=== PATIENT | female | born 1960 | race Caucasian/White ===

== ENCOUNTER → 2024-06-04 17:09 | Outpatient (REF) | payer BC, SELFPAY | LOC: CLAB 17:09 | PROVIDERS: ATTENDING PHYSICIAN Surgery | DX: C50.412 Malignant neoplasm of upper-outer quadrant of left female breast (principal) | CPT/HCPCS: 88307 ==

== ENCOUNTER → 2024-07-07 16:18 | Outpatient (REF) | payer MEDICARE, SELFPAY | LOC: CLAB 16:18 | PROVIDERS: ATTENDING PHYSICIAN Surgery | DX: D05.12 Intraductal carcinoma in situ of left breast (principal) | CPT/HCPCS: 88307; 88333; 88341; 88342 ==

== ENCOUNTER → 2024-08-20 08:10 | Outpatient (REF) | payer MEDICARE, SELFPAY | LOC: MRI 3T 08:10 | PROVIDERS: ATTENDING PHYSICIAN Surgery; FAMILY PHYSICIAN Internal Medicine | DX: C50.412 Malignant neoplasm of upper-outer quadrant of left female breast (principal) | CPT/HCPCS: 77049; A9585 ==

== ENCOUNTER 2024-08-25 06:07 | Day surgery (SDC) | payer MEDICARE, SELFPAY ==
[2024-08-24 14:13] VITALS: BMI 36.1
[2024-08-24 15:19] LABS: ALT (SGPT) 33 U/L (0-35); AST (SGOT) 36 U/L (14-36); Albumin 4.7 g/dl (3.5-5.0); Alkaline Phosphatase 99 U/L (38-126); Blood Urea Nitrogen 13 mg/dl (7-17); Calcium 10.4 mg/dl (8.4-10.2); Carbon Dioxide 27 mmol/L (22-30); Chloride 102 mmol/L (98-107); Estimated Creatinine Clearance 73 ml/min; Glucose 86 mg/dl (70-99); Potassium 4.3 mmol/L (3.5-5.1); Sodium 141 mmol/L (135-145); Total Bilirubin 0.3 mg/dl (0.2-1.3); Total Protein 7.4 g/dl (6.3-8.2); eGFR > 60.00
[2024-08-24 15:34] LABS: % Immature Granulocytes 0.3 % (0-0.5); % Lymphocytes 54.1 % (20.5-51.1); % Monocytes 8.4 % (1.7-9.3); % Neutrophils 35.2 % (42.2-75.2); Absolute Basophils 0.1 10^3/uL (0-0.2); Absolute Eosinophils 0.1 10^3/uL (0-0.7); Absolute Lymphocytes 4.2 10^3/uL (1.2-3.4); Absolute Monocytes 0.7 10^3/uL (0.1-0.6); Absolute Neutrophils 2.7 10^3/uL (1.4-6.5); Mean Corp Hgb Conc. 33.3 g/dL (33.0-37.0); Mean Corpuscular Hgb 28.8 pg (27.0-31.0); Mean Corpuscular Volume 86.3 fL (81.0-99.0); Mean Platelet Volume 9.5 fL (7.4-10.4); Nucleated Red Blood Cells % 0 %; Platelet Count 331 10^3/uL (130-400); Red Blood Cell Count 4.52 10^6/uL (4.20-5.40); Red Cell Dist. Width 13.9 % (11.5-14.5); White Blood Cell Count 7.8 10^3/uL (4.8-10.8)
[2024-08-24 15:50] LABS: TSH Reflex To Free T4 2.01 uIU/ml (0.47-4.68)
[2024-08-25] VITALS (8 sets, daily range): BP systolic 116–129; BP diastolic 62–84; BMI 35.6
[2024-08-25] MEDS: TYLENOL 1000 MG PO (06:44)
[2024-08-25] MEDS: LOVENOX 40 MG SC (06:44)
[2024-08-25] MEDS: NORMOSOL-R/PLASMALYTE-A 1000 IV (07:14)
[2024-08-25] MEDS: EMEND 40 MG PO (07:18)
--- NOTE | 2024-08-25 07:30 | W.SUR.PREOP ---
Pre-Operative Surgical Note
-
I have examined this patient prior to the performance of the scheduled procedure.
The patient's condition is unchanged from the time of the current History and
Physical and the patient is able to undergo the scheduled procedure.
--- NOTE | 2024-08-25 10:50 | W.IMMPOSTOP ---
Surgical Immed Post Op Note
-
Primary Surgeon: GALA Apodaca MD
Assisting Surgeon:
Pre-op Diagnosis: Recurrent left breast cancer, s/p mastectomy with TRAM flap and radiation
Post-op Diagnosis: Same
Procedure Performed: Bilateral revisions to reconstructed breasts, adjacent tissue transfer
Anesthesia Type: General
Specimen / Cultures: Right and left reconstructed breast tissue
Estimated Blood Loss: 30 cc
Complications: None
Operative Findings: As expected
--- NOTE | 2024-08-25 10:51 | OR.RPT ---
Operative Report
Operative Report
Date of surgery: 08/25/2024
Surgeon: GALA Apodaca MD
Preoperative diagnosis:
1. Recurrent left breast cancer
2. 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
3. Status post radiation
4. Status post bilateral TRAM flap breast reconstruction
Postoperative diagnosis: Same
Procedure:
1. Bilateral revisions to reconstructed breasts
2. Adjacent tissue transfer, trunk, 4.5 x 4.5 cm x 2, total 40.5 cm�
3. Spy angiography for evaluation of flap perfusion
Anesthesia: General
Specimens: Right and left reconstructed breast tissue
Complications: None
EBL: 30 cc
Indications for procedure: Patient is a 63-year-old female with a history of left-sided breast cancer. She was diagnosed with a recurrence with positive margins after lumpectomy. She has a history of bilateral mastectomy with TRAM flap
reconstruction. She had prior left breast radiation therapy. On consultation, she has a nonhealing wound of the left breast superior to the reconstructed nipple. An MRI confirmed the tissue required for resection was just under the site. She had a
large, oversized breast reconstruction via flaps that were pendulous and heavy. We discussed her options at length including revising the bilateral reconstructed breasts with removal of excess mastectomy skin and underlying flap tissue. This would
be done in a Ann pattern and performed Similarly to a breast reduction. Additional reconstruction may be necessary following additional radiation therapy. New areola complexes could be performed with prior abdominal skin islands via adjacent
tissue transfer. Risks include fat necrosis, surgical wound dehiscence, infection, hematoma, seroma. She understood these risk desire to proceed
Procedure in detail: Patient was identified preoperatively and the surgical sites were confirmed to be the bilateral breast. Bilateral Ann patterns were marked out along the reconstructed breasts. The bilateral reconstructed nipple areolar
complexes were also marked out. All questions were answered and consents were confirmed. Patient was taken back to the operating placed upon the table. Anesthesia was induced and the patient was prepped and draped in the usual sterile fashion
using ChloraPrep solution. Timeout for patient safety was performed was confirmed that bilateral SCDs were in place, preoperative Lovenox have been administered, and preoperative antibiotics have been given. Procedure began with on the right
breast and Dr. Regan on the left breast to perform the lumpectomy. Her operative report will be dictated separately.
On the right breast the Ann pattern markings were incised with a 10 blade and dissection continued down with Bovie electrocautery creating healthy skin flaps. The areola was incised and the remaining flap skin was excised full-thickness. The flap
was then contoured removing the lateral aspect to provide the reduction. The wound was tentatively closed on the side and adequate flap perfusion was confirmed as the Mode areola had punctate bleeding without evidence of congestion. When "Pacheco"Jass completed the lumpectomy the left side, the wound was inspected and it was found that a 4.5 x 4.5 cm area of skin has been resected in the site of prior lumpectomy. The underlying tissue had been partially resected as well a plan was made
to utilize the Ann pattern and rearranged tissue and debulked to match the right reconstructed breast. As such the Ann pattern markings were incised and Bovie electrocautery was used to incise down and create healthy skin flaps easily and
laterally. The remainder of the breast skin was removed to save for a 4.5 x 4.5 area that would be used to reconstruct the areola via adjacent tissue transfer. The remainder of the skin was excised full-thickness and then the flap was contoured to
create an appropriate breast mound. Meticulous hemostasis was ensured and the wound was tentatively closed after closure of the wide pulse pattern, the neoareola was transposed into the superior skin defect. A series of 2-0 Vicryl's followed by
3-0 and 4-0 Monocryl as well as the INSORB stapler were used to close the wounds. After percent Marcaine diluted with normal saline was used for pec and intercostal blocks. Attention was then drawn back to the right side where additional debulking
was performed to ensure symmetry. A 4.5 x 4.5 cm area of skin would be used for recreation of the areola via adjacent tissue transfer. A [employer] cutter was used to esme the skin at the area of the new areola by measuring the nipple to fold lengths
on the left. This was then incised with a 15 blade and excised full-thickness. The areola was then transposed and inset. The wounds were closed with 3-0 and 4-0 Monocryl in the INSORB stapler and as well as 2-0 Vicryl. Patient tolerated
procedure well, all counts were correct. At the conclusion and inset spy angiography was performed to confirm the viability of the bilateral mastectomy skin flaps as well as the underlying flap that had been developed. All showed adequate
perfusion.
Patient was extubated taken the PACU for further care. Wounds were dressed with ointment, dry gauze, and tegaderm.
[2024-08-25] MEDS: MORPHINE SULFATE 4 MG IV (11:11)
== END 2024-08-25 12:39 | disposition home or self-care (01) ==
LOC: SDS 06:07
PROVIDERS: ATTENDING PHYSICIAN Surgery; FAMILY PHYSICIAN Nurse Practitioner Family; OTHER PHYSICIAN Family Medicine; REFERRING PHYSICIAN Surgery Plastic and Reconstructive Surgery
DX: T81.89XA Other complications of procedures, not elsewhere classified, initial encounter (principal); Y93.89 Activity, other specified; Z85.3 Personal history of malignant neoplasm of breast; Z90.13 Acquired absence of bilateral breasts and nipples; Z15.09 Genetic susceptibility to other malignant neoplasm; Z92.3 Personal history of irradiation
CPT/HCPCS: 19380; 19301; 14001; 88305; 88307; 88332; 36415; 80053; 84443; 85025; 88331; 88341; 88342; 93005; A4648; C1894

== ENCOUNTER → 2025-01-11 09:03 | Outpatient (REF) | payer MEDICARE, SELFPAY | LOC: RCS 09:03 | PROVIDERS: ATTENDING PHYSICIAN Internal Medicine; FAMILY PHYSICIAN Nurse Practitioner Family | DX: I45.2 Bifascicular block (principal); R06.09 Other forms of dyspnea; T45.1X5A Adverse effect of antineoplastic and immunosuppressive drugs, initial encounter; Z17.0 Estrogen receptor positive status [ER+]; C50.912 Malignant neoplasm of unspecified site of left female breast | CPT/HCPCS: 93306; 93356 ==

== ENCOUNTER 2025-02-07 19:42 | Emergency (ER) | payer MEDICARE, SELFPAY ==
[2025-02-07 19:48] VITALS: BP 145/74
--- NOTE | 2025-02-07 22:14 | ED.GENMED ---
History of Present Illness
General
Chief Complaint: Musculo-Skeletal Complaint
Source: patient
Exam Limitations: none
Time Seen by Provider: 02/07/25 20:51
Nursing documentation reviewed up to this point in time: agreed with
History of Present Illness
History of Present Illness:
64 yr old female presents to the ER with after fall. Patient reports around 6:30 PM tonight she tripped outside and fell she braced her fall with her left arm outstretched and hit her face/nose. She denies any actual head. no loss of
consciousness.
she reports her arm took the brunt of the fall and she complains of pain to the right elbow proximal forearm region. She is not on blood thinners denies any headache denies any nausea vomiting dizziness.
Her only complaint presently is left arm pain.
Past History
Past History
ED Past Medical History: Cancer
ED Past Surgical History: Other
Social History
Tobacco: Non-smoker
Living: with family
Employment: Employed
Review of Systems
Review of Systems
Allergies reviewed?: Yes
All Other Systems: ROS reviewed and negative except as documented in HPI and ROS
Constitutional: Reports no symptoms
EENT: Reports other (abrasion to nose )
Respiratory: Reports no symptoms
Cardiac: Reports no symptoms
ABD/GI: Reports no symptoms; Denies nausea or vomiting
Musculoskeletal: Reports other (left arm pain ); Denies neck pain
Skin: Reports no symptoms
Neurological: Denies headache ( no LOC )
Psychiatric: Reports no symptoms
Phy Exam
General Physical Exam
General Presentation: no apparent distress
General age: appears stated age
General Skin: warm and dry
General Habitus: normal
General Mental: alert
General Hydration: appears well hydrated
ENT Exam
ENT Exam: EOMI, neck supple and other (+ abrasion to nose )
Eye Exam
Eye Exam: PERRL and EOMI
Eye Exam General: PERRL: bilateral and EOM intact: bilateral
Pupil Exam: Bilateral: round and reactive
Neurological Exam
Neurological Exam: alert, oriented x3, no motor deficits and no sensory deficits
Omi Coma Scale
Eye Opening: Spontaneous
Verbal Response: Oriented
Motor Response: Obeys Commands
GCS Total Score: 15
Musculoskeletal Exam
Musculoskeletal Exam: other (Left upper extremity strong pulses;+ tenderness to left proximal forearm minimal swelling normal distal sensation no abrasions or lacerations; no obvious head injury no bony cervical spine tenderness)
Skin Exam
Skin Exam: normal color and warm/dry
Psychiatric Exam
Psychiatric Exam: normal mood/affect
Course
Orders/Labs/Results
Orders:
Orders
02/07/25 19:45
CR Forearm - Left 2 View Urgent
Comment:
Reason For Exam: FALL
Nasal Bones, complete 3 Views [CR Nasal Bones Comp Min 3 View] Urgent
Comment:
Reason For Exam: FALL
02/07/25 22:17
Splints/Slings/Crut- Treatment ONCE
Location: Left
Type of Splint: Long Arm
Comment: posterior long arm
02/07/25 22:29
Sling Left-Treatment ONCE
Tetanus/Diphth/Acelpertussis [Adacel] 0.5 ml IM .ONCE ONE
Vital Signs
Initial and Last Documented VS:
Initial Vital Signs
Temp Pulse Resp BP Pulse Ox
98.1 F 80 20 145/74 100
02/07/25 19:48 02/07/25 19:48 02/07/25 19:48 02/07/25 19:48 02/07/25 19:48
Last Documented Vital Signs
Temp Pulse Resp BP Pulse Ox
98.1 F 80 20 145/74 100
02/07/25 19:48 02/07/25 19:48 02/07/25 20:00 02/07/25 19:48 02/07/25 19:48
MDM/Problems Addressed
Differential Diagnosis Includes:
Not limited to nasal contusion abrasion, fracture, elbow fracture versus contusion head injury
MDM/Problems Addressed:
As documented patient is a 64-year-old female not on blood thinners presented after fall. Fall occurred approximately 4 hours ago. She tripped and landed on an outstretched left arm and hit her nose. She denies hitting her actual head she denies
loss of consciousness she denies any headache nausea vomiting. No head injury complaints at this time. She primarily complains of left forearm pain and has a fracture to the left radial neck normal neurovascular exam no abrasions or lacerations.
Nasal bones are negative.
Will splint in a posterior long-arm and DC with Ortho follow-up.
Shared medical decision making patient denies hitting head and has no complaints of headache at this time she has a normal neurologic exam is not on thinners we will hold off on CAT scan. Patient unsure of her last tetanus
She is instructed to return if any worsening of symptoms no bony cervical spine tenderness.
Chronic conditions affecting care:
Currently being treated for breast cancer
*Radiology
Radiology exam reviewed: radiology read reviewed
*Critical Care Note
Total Time (30-74mins, 75-104mins- exclusive of procedures): Not Applicable
ED Attending Note
-
Portions of this chart may have been created with voice recognition software.� Occasional wrong word or��sound alike� substitutions may have occurred due to the inherent limitations of voice recognition software.
Discharge Plan
Departure
Patient Disposition: Home (Routine Discharge)
Date of Disposition: 02/07/25
Time of Disposition: 22:29
Patient with high blood pressure during this ER visit?: Yes
Covid-19: Not Applicable
Discharge Problem:
Forearm fracture, Contusion of nose, Abrasion
Instructions: Contusion (DC), Splint Care, Forearm fracture, Abrasions - ED discharge instructions
Prescriptions:
No Action
No Current Medications
0
Referrals:
Alyssia Shearer CRNP [Family Provider] -
Brijesh Israel MD [Active] -
Activity Restrictions/Additional Instructions:
As discussed wear splint for support until seen and evaluated by orthopedics. Please call orthopedics tomorrow. Do not wet splint. You may ice over the affected area and take Tylenol or ibuprofen as needed. Wear sling for support during the day
remove at night while sleeping. Return if any worsening of symptoms of increased pain cold numb or blue fingers. Return if any headaches nausea vomiting difficulty walking dizziness balance issues or any further concerns.
Interventions
Interventions:
*Risk Screen - Suicide Last Done: 02/07/25 22:11
*General Assessment Last Done: 02/07/25 22:11
*Neglect/Abuse Screening Last Done: 02/07/25 22:11
*ED- Fall Risk Assessment Last Done: 02/07/25 22:11
*ED COVID-19 Vaccine History Last Done: 02/07/25 22:11
*Nursing Disposition Last Done: 02/07/25 22:47
ED-Musculoskeletal Assessment Last Done: 02/07/25 21:45
Discharge Date and Time
Discharge Date/Time: 02/07/25 22:48
Print Language: MAORI
[2025-02-07] MEDS: ADACEL 0.5 ML IM (22:37)
== END 2025-02-07 22:48 | disposition home or self-care (01) ==
LOC: EMR 19:42
PROVIDERS: EMERGENCY PHYSICIAN Emergency Medicine; FAMILY PHYSICIAN Nurse Practitioner Family
DX: S52.132A Displaced fracture of neck of left radius, initial encounter for closed fracture (principal); S00.33XA Contusion of nose, initial encounter; S00.31XA Abrasion of nose, initial encounter; W01.0XXA Fall on same level from slipping, tripping and stumbling without subsequent striking against object, initial encounter; C50.919 Malignant neoplasm of unspecified site of unspecified female breast; Z23 Encounter for immunization
CPT/HCPCS: 29105; 99283; 90471; 70160; 73090; 90715

== ENCOUNTER → 2025-04-15 14:07 | Outpatient (REF) | payer MEDICARE, SELFPAY | LOC: RCS 14:07 | PROVIDERS: ATTENDING PHYSICIAN Internal Medicine; FAMILY PHYSICIAN Nurse Practitioner Family; OTHER PHYSICIAN Internal Medicine Hematology & Oncology | DX: I45.2 Bifascicular block (principal); R06.09 Other forms of dyspnea; T45.1X5A Adverse effect of antineoplastic and immunosuppressive drugs, initial encounter; Z17.0 Estrogen receptor positive status [ER+]; C50.912 Malignant neoplasm of unspecified site of left female breast | CPT/HCPCS: 93306; 93356 ==

== ENCOUNTER → 2025-05-06 16:37 | Outpatient (REF) | payer MEDICARE, SELFPAY | LOC: MRI 3T 16:37 | PROVIDERS: ATTENDING PHYSICIAN Internal Medicine Hematology & Oncology; FAMILY PHYSICIAN Nurse Practitioner Family | DX: C50.112 Malignant neoplasm of central portion of left female breast (principal) | CPT/HCPCS: 77049; A9585 ==

== ENCOUNTER → 2025-08-12 09:52 | Outpatient (REF) | payer MEDICARE, SELFPAY ==
--- NOTE | 2025-08-12 11:32 | CARDSERVDEF ---
Echocardiogram with Definity completed after protocol screening completed. Allergies verified.
Patent IV site: __R hand___
IV site flushed with 0.9% NaCl pre and post administration.
Diluted bolus method utilized to enhance visualization of ventricular acuña.
Total volume given: _6___ mL
Patient tolerated all procedures well without complications.
--- NOTE | 2025-08-12 11:32 | CARDSERVDEF ---
Echocardiogram with Definity completed after protocol screening completed. Allergies verified. Pt here for Stress Echo.
Patent IV site: _Right wrist 22 G PC by IV team ____
IV site flushed with 0.9% NaCl pre and post administration.
Diluted bolus method utilized to enhance visualization of ventricular acuña.
Total volume given: __7__ mL
Patient tolerated all procedures well without complications.
Heplock D/C ed at 1129, site clear, no redness, no edema. Pressure held, no bleeding, 2x2 applied and taped. Pt offers no complaints.
== END ==
LOC: RCS 09:52
PROVIDERS: ATTENDING PHYSICIAN Internal Medicine; FAMILY PHYSICIAN Nurse Practitioner Family
DX: R07.89 Other chest pain (principal); I45.2 Bifascicular block; R06.02 Shortness of breath
CPT/HCPCS: 93017; 93350; Q9957

== ENCOUNTER → 2025-10-21 12:51 | Outpatient (REF) | payer MEDICARE, SELFPAY | LOC: RCS 12:51 | PROVIDERS: ATTENDING PHYSICIAN Internal Medicine; FAMILY PHYSICIAN Nurse Practitioner Family; OTHER PHYSICIAN Internal Medicine Hematology & Oncology | DX: I45.2 Bifascicular block (principal); T45.1X5A Adverse effect of antineoplastic and immunosuppressive drugs, initial encounter; Z17.0 Estrogen receptor positive status [ER+]; C50.912 Malignant neoplasm of unspecified site of left female breast | CPT/HCPCS: 93306; 93356 ==

== ENCOUNTER → 2025-11-08 20:06 | Outpatient (REF) | payer MEDICARE, SELFPAY | LOC: MRI 3T 20:06 | PROVIDERS: ATTENDING PHYSICIAN Internal Medicine Hematology & Oncology; FAMILY PHYSICIAN Internal Medicine | DX: C50.112 Malignant neoplasm of central portion of left female breast (principal) | CPT/HCPCS: 77049; A9585 ==

== ENCOUNTER → 2025-11-15 11:21 | Outpatient (REF) | payer MEDICARE, SELFPAY | LOC: RAD 11:21 | PROVIDERS: ATTENDING PHYSICIAN Nurse Practitioner Adult Health | DX: R05.1 Acute cough (principal) | CPT/HCPCS: 71046 ==